=== PATIENT | female | born 1950 | race Caucasian/White ===

== ENCOUNTER 2018-03-17 18:51 | Emergency (ER) | payer MEDICARE ==
[~2018-03-17] VITALS: Ht 152.4 cm; Wt 45.4 kg
[2018-03-17 18:51] VITALS: BP_SYST 136
[2018-03-17] MEDS ORDERED: NACL 0.9% 1,000 ML IV ONE (19:45)
[2018-03-17] MEDS ORDERED: fentaNYL CITRATE/PF 100 MCG/2 ML AMP IVP ONE ×3 (20:00→22:15)
[2018-03-17 20:02] LABS: BASOPHILS % (AUTO) 0.3 % (0.0-2.0); EOSINOPHILS % (AUTO) 0.2 % (0.0-4.0); HEMATOCRIT 41.3 % (36-48); HEMOGLOBIN 13.9 g/dL (12.0-16.0); LYMPHOCYTES # (AUTO) 1.3 K/uL (1.0-5.5); LYMPHOCYTES % (AUTO) 14.3 % (20.5-51.5); MEAN CORPUSCULAR HEMOGLOBIN 29 pg (27-31); MEAN CORPUSCULAR HGB CONC 34 % (32-36); MEAN CORPUSCULAR VOLUME 86 fL (79.0-98.0); MONOCYTES # (AUTO) 0.4 K/uL (0.0-1.0); MONOCYTES % (AUTO) 4.2 % (1.7-9.3); NEUTROPHILS # (AUTO) 7.1 K/uL (1.8-7.7); PLATELET COUNT (AUTO) 289 K/uL (130-430); RED BLOOD CELL COUNT(AUTO) 4.79 MIL/uL (4.2-6.2); RED CELL DISTRIBUTION WIDTH 12.2 % (9.0-15.0); WHITE BLOOD COUNT (AUTO) 8.8 K/uL (4.8-10.8)
[2018-03-17] MEDS ORDERED: ONDANSETRON HCL 4 MG/2 ML VIAL IVP ONE (20:15)
[2018-03-17 20:16] LABS: CALCIUM 9.4 mg/dL (8.4-11.0); CREATININE 0.52 mg/dL (0.55-1.30); POTASSIUM 3.6 mmol/L (3.5-5.1)
[2018-03-17 20:19] LABS: PROTHROMBIN TIME 10.6 SECS (9.5-12.5)
[2018-03-17 20:21] LABS: ALBUMIN 4.3 g/dL (3.4-4.8); TOTAL BILIRUBIN 0.4 mg/dL (0.0-1.0)
[2018-03-17] MEDS ORDERED: LORazepam 2 MG/ML VIAL (FOR ER USE) IVP ONE (22:15)
[2018-03-17 22:30] VITALS: BP_SYST 107
== END 2018-03-17 22:30 | disposition short-term general hospital (02) ==
LOC: SED 18:51
DX: S73.034A Other anterior dislocation of right hip, initial encounter (principal); S69.91XA Unspecified injury of right wrist, hand and finger(s), initial encounter; Z96.641 Presence of right artificial hip joint; W10.1XXA Fall (on)(from) sidewalk curb, initial encounter; Y93.E1 Activity, personal bathing and showering; Y92.091 Bathroom in other non-institutional residence as the place of occurrence of the external cause; Y99.8 Other external cause status
CPT/HCPCS: 36415; 73502; 80053; 85025; 85610; 85730; 96361; 96374; 96375; 96376; 99285; J2060; J2405; J3010; J7030

== ENCOUNTER 2021-05-25 20:27 | Emergency (ER) | payer MEDICARE ==
[~2021-05-25] VITALS: Ht 149.9 cm; Wt 47.6 kg
[2021-05-25 20:27] VITALS: BP_SYST 136
--- NOTE | 2021-05-25 20:27 | NUR ---
Patient to ER bed 2 to gown for evaluation. Side rails up. Report given to May. ER at bedside examining patient.
--- NOTE | 2021-05-25 20:29 | NUR ---
Patient BIB by BLS/EMS from home. C/O left hip pain today. Per BLS reported, patient had left hip Sx on 04/08/21. Patient seen by DARIUS Sosa today. Patient started pain again and called 911. A/O,X4, left hip pain, pain rate 9/10.
--- NOTE | 2021-05-25 20:40 | NUR ---
X-ray at bedside.
[2021-05-25] MEDS ORDERED: MORPHINE 4 MG INJ. 4 MG/ML VIAL IM ONE (20:45)
--- NOTE | 2021-05-25 20:45 | NUR ---
Patient's family at bedside.
--- NOTE | 2021-05-25 21:02 | NUR ---
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 Patient tolerated well.
[2021-05-25 21:29] LABS: BASOPHILS % (AUTO) 0.5 % (0.0-2.0); EOSINOPHILS # (AUTO) 0.1 K/uL (0.0-0.4); EOSINOPHILS % (AUTO) 1.6 % (0.0-4.0); HEMATOCRIT 32.6 % (36-48); HEMOGLOBIN 11.2 g/dL (12.0-16.0); LYMPHOCYTES # (AUTO) 1.5 K/uL (1.0-5.5); LYMPHOCYTES % (AUTO) 25.6 % (20.5-51.5); MEAN CORPUSCULAR HEMOGLOBIN 30 pg (27-31); MEAN CORPUSCULAR HGB CONC 34 % (32-36); MEAN CORPUSCULAR VOLUME 86 fL (79.0-98.0); MONOCYTES # (AUTO) 0.4 K/uL (0.0-1.0); MONOCYTES % (AUTO) 6.7 % (1.7-9.3); NEUTROPHILS # (AUTO) 3.7 K/uL (1.8-7.7); NEUTROPHILS % (AUTO) 65.6 % (40.0-70.0); PLATELET COUNT (AUTO) 312 K/uL (130-430); RED CELL DISTRIBUTION WIDTH 13.2 % (9.0-15.0); WHITE BLOOD COUNT (AUTO) 5.7 K/uL (4.8-10.8)
[2021-05-25 21:57] LABS: ANION GAP 8 (5-15); ASPARTATE AMINOTRANSFERASE 15 U/L (10-37); CALCIUM 8.8 mg/dL (8.4-11.0); CHLORIDE 99 mmol/L (98-107); CREATININE 0.78 mg/dL (0.55-1.30); GLUCOSE 108 mg/dL (70-99); POTASSIUM 3.8 mmol/L (3.5-5.1); SODIUM SERUM 137 mmol/L (136-145); TOTAL BILIRUBIN 0.2 mg/dL (0.0-1.0); UREA NITROGEN, BLOOD 15 mg/dL (8-21)
[2021-05-25 21:58] LABS: ALANINE AMINOTRANSFERASE 17 U/L (12-78); ALBUMIN 3.7 g/dL (3.4-4.8); URIC ACID 4.2 mg/dL (2.4-7.0)
[2021-05-25 22:07] LABS: C-REACTIVE PROTEIN QUANT < 0.2 mg/dL (0-0.5)
[2021-05-25 22:13] LABS: PROTHROMBIN TIME 10.6 SECS (9.5-12.5)
[2021-05-25 22:21] LABS: ERYTHROCYTE SEDIMENTATION RATE 5 MM/HR (0-20)
[2021-05-25 22:43] VITALS: BP_SYST 130
--- NOTE | 2021-05-25 22:43 | NUR ---
Patient given written and verbal discharge instructions and verbalizes understanding. ER MD discussed with patient the results and treatment provided. Patient in stable condition. ID arm band removed. Rx of norco given. Patient educated on pain management and to follow up with PMD. Pain Scale 3. Opportunity for questions provided and answered. Medication side effect fact sheet provided.
== END 2021-05-25 22:43 | disposition home or self-care (01) ==
LOC: SED 20:27
DX: G89.29 Other chronic pain (principal); M25.551 Pain in right hip; M25.552 Pain in left hip
CPT/HCPCS: 36415; 73521; 80053; 84550; 85025; 85610; 85651; 85730; 86140; 96372; 99284; J2270

== ENCOUNTER 2023-08-18 09:40 | Emergency (ER) | payer MEDICARE | END 2023-08-18 11:03 | disposition left against medical advice (07) | LOC: SED 09:40 | DX: S61.011D Laceration without foreign body of right thumb without damage to nail, subsequent encounter (principal); Z53.21 Procedure and treatment not carried out due to patient leaving prior to being seen by health care provider; X58.XXXD Exposure to other specified factors, subsequent encounter ==